=== PATIENT | female | born 1990 | race Caucasian/White ===

== ENCOUNTER 2024-01-28 13:08 | Outpatient (AMB) | payer OTHER, SELFPAY ==
--- NOTE | 2024-01-28 13:19 | MHC.OFFWIV ---
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 denies any discharge. Patient Tobacco Use Status: Never used Tobacco Allergies No Known Allergies Allergy (Verified 01/28/24 13:40) Do you need a note to return to daycare/school/sports/work: No HPI HPI Comments History of Present Illness Details here today with complaints of itchy red left eye. Started yesterday. Scant drainage to the eye upon waking. Denies any fever, chills, light sensitivity, headache, trauma to the eye. Does not wear contact lenses or glasses. PFSH Social History Patient Tobacco Use Status: Never used Tobacco Review of Systems Const All systems reviewed & are unremarkable except as noted in HPI and below Physical Exam Vital Signs: Last Vital Signs Pulse 68 01/28/24 13:20 BP 114/70 01/28/24 13:20 Pulse Ox 96 01/28/24 13:20 Oxygen Delivery Method Room Air 01/28/24 13:20 BMI result Body Mass Index 34.8 Eyes Visual Boo: normal visual boo by confrontation Alignment and Position: alignment normal Periorbital: periorbital findings normal Eyelids: Yes eyelids normal Conjunctivae: conjunctival abnormal left conjunctival injection diffuse Sclerae: sclerae normal Pupils: Equal, round and reactive pupils present EOM: EOMs intact bilaterally Direct Ophthalmoscopy: normal light reflex and no photophobia Neuro Cranial nerves: Yes Equal, round and reactive pupils present Assessment & Plan Assessment & Plan (1) Bacterial conjunctivitis of left eye: Code(s): H10.9 - Unspecified conjunctivitis Plan . Medications: New polymyxin B sulf-trimethoprim 10,000 unit- 1 mg/mL APPLY TO BOTH EYES while awake; do not exceed 6 doses in 24 hours 1 drp ophthalmic (eye) QID 5 days 10 mL 0RF Patient Instructions: Put cold or warm wet cloths on your eye a few times a day if the eye hurts. Do not wear contact lenses or eye makeup until the pink eye is gone. Throw away any eye makeup you were using when you got pink eye. Clean your contacts and storage case. Wash bed linen after 24 hours of antibiotic eye drop use. Do not share eye drops. Use a clean towel to wash your face each day until symptoms are gone. This will help prevent recurrence. What is pink eye? [place] eye is a term people use to describe an infection or irritation of the eye. The medical term for pink eye is conjunctivitis. If you have pink eye, your eye (or eyes) might: ?Turn pink or red ?Weep or ooze a gooey liquid ?Become itchy or burn ?Get stuck shut, especially when you first wake up [place] eye can be caused by an infection, allergies, or an unknown irritation. Can you catch pink eye from someone else? Yes. When pink eye is caused by an infection, it can spread easily. Usually, people catch it from touching something that has been in contact with an infected person's eye. It can also be spread when an infected person touches someone else, and then that person touches their eye. If someone you know has pink eye, avoid touching their pillowcases, towels, or other personal items. When should I see a doctor or nurse? See your doctor or nurse if your eye hurts, or if you still have trouble seeing clearly after blinking. If you do not have these problems, but think you might have pink eye, your doctor or nurse might be able to give you advice over the phone. Can pink eye be treated? Most cases of pink eye go away on their own without treatment. But some types of pink eye can be treated. When pink eye is caused by infection, it is usually caused by a virus, so antibiotics will not help. Still, pink eye caused by a virus can last several days. ?[place] eye caused by an infection with bacteria can be treated with antibiotic eye drops, gel, or ointment. ?[place] eye caused by other problems can be treated with eye drops normally used to treat allergies. These drops will not cure the pink eye, but they can help with itchiness and irritation. When using eye drops for infection, do not touch your healthy eye after touching your infected eye. Also, do not touch the bottle or dropper directly onto 1 eye and then use it in the other. These things can cause the infection to spread from 1 eye to the other. If your eyelids feel swollen, it might also help to hold a cool wet cloth on the area. What if I wear contact lenses? If you wear contact lenses and you have symptoms of pink eye, it is really important to have a doctor look at your eyes. In people who wear contacts, the symptoms of pink eye can be caused by corneal abrasion. Corneal abrasion is a scratch on the eye and can be a serious problem. During treatment for eye infections, you might need to stop wearing your contacts for a short time. If your contacts are disposable, throw them away and use new ones. If your contacts are not disposable, you need to carefully clean them. You should also throw away your contact lens case and get a new one. When can I go back to work or school? If you have pink eye caused by an infection, remember that it can spread very easily. The best way to avoid spreading it is to stay away from other people until you no longer have symptoms. If this is not possible, wash your hands often (figure 1). It's also important to avoid touching your eyes and sharing items that could spread the infection. Schools and day cares usually have rules about when a child with pink eye can return. If a child has a bacterial infection, they will probably need to stay home until they have gotten antibiotic eye drops or ointment for 24 hours. Can pink eye be prevented? To keep from getting or spreading pink eye caused by an infection: ?Wash your hands often with soap and water. ?Try not to touch your eyes. ?Avoid sharing towels, bedding, or other personal items with a person who has pink eye. If your pink eye is caused by allergies, it might help to stay inside with the windows shut as much as possible during peak allergy seasons. What problems should I watch for? Call your doctor or nurse if: ?You have trouble seeing clearly after blinking. ?Your eye is still red or has drainage after 3 days. ?You have eye pain that is getting worse. Coding Level of Care Code Est Pt Level 3 (90606) Diagnoses Bacterial conjunctivitis of left eye H10.9
[2024-01-28 13:20] VITALS: BP 114/70; PULSE 68; O2SAT 96; BMI 34.8
== END 2024-01-28 13:46 | disposition home or self-care (01) ==
PROVIDERS: Visit Provider Nurse Practitioner Family
DX: H10.9 Unspecified conjunctivitis (principal)
CPT/HCPCS: 99051; 99213

== ENCOUNTER 2024-03-19 08:33 | Outpatient (AMB) | payer OTHER, SELFPAY ==
[2024-03-19 09:18] VITALS: BP 132/80; PULSE 82; TEMP 36.8; O2SAT 98; BMI 35.8
--- NOTE | 2024-03-19 09:18 | MHC.OFFWIV ---
Intake Vital Signs 03/19/24 09:18 Height 5 ft 5 in Weight 215 lb BMI 35.8 BP 132/80 Blood Pressure Location Rt brachial Position Sitting Pulse 82 Pulse Source Pulse Oximeter Temp 98.2 F Temp Source Oral Pulse Oximetry (%) 98 Oxygen Delivery Method Room Air Intake Visit Reasons: EP ?Strep Intake Note: pt is here for possible strep Patient Tobacco Use Status: Never used Tobacco Allergies No Known Allergies Allergy (Verified 03/19/24 09:23) Do you need a note to return to daycare/school/sports/work: Yes HPI HPI Comments History of Present Illness Details Patient is a 33-year-old female complaining of 3 days of worsening sore throat, headache and pain with swallowing. She feels like her tonsils are swollen and she noticed white spots in the back of her throat this morning. She states she also feels like she has ear fullness in both ears. She states she does have a young child and she has been on vacation and taking him to do all kinds of activities at [facility] places for the last week so she has had many sick contact possibilities. She denies any fevers or cough. She states her son is not sick yet. [facility] Social History Patient Tobacco Use Status: Never used Tobacco Review of Systems Const All systems reviewed & are unremarkable except as noted in HPI and below Physical Exam Vital Signs: Last Vital Signs Temp 98.2 F 03/19/24 09:18 Pulse 82 03/19/24 09:18 BP 132/80 03/19/24 09:18 Pulse Ox 98 03/19/24 09:18 Oxygen Delivery Method Room Air 03/19/24 09:18 BMI result Body Mass Index 35.8 Const General: cooperative, healthy appearing, comfortable and no acute distress Orientation/consciousness: patient oriented x3 Limitations: no limitations HEENT Head: Yes normal to inspection Ears: hearing grossly normal bilaterally, external ears normal and TM's normal bilaterally General nose exam: Normal external nose present, Normal nares present and No nasal discharge present Face and sinus: Yes normal facial exam and Yes sinuses nontender Mouth: Normal oral and palatal mucosa present and moist mucous membranes Throat: Yes tonsils normal, Yes uvula midline and Yes posterior oropharynx abnormal (Erythema and exudates) Eyes General: appearance normal, both eyes and all related structures Neck Neck: Yes normal visual inspection Resp Effort & Inspection: normal respiratory effort, able to speak in complete sentences, no respiratory distress, not tachypneic, no tripod positioning and no use of accessory muscles Skin General skin exam: no rashes or lesions noted Neuro General: patient oriented x3 Extrem General: Yes normal to inspection and Yes no clubbing, cyanosis or edema Results AMB Rapid Strep AMB Rapid Strep Negative Last Edit by Jv Jauregui CMA on 03/19/24 09:40 Assessment & Plan Assessment & Plan (1) Strep pharyngitis: Code(s): J02.0 - Streptococcal pharyngitis Plan: Center score is 3, we will treat for strep pharyngitis despite rapid strep being negaative. Plan see above Orders: Orders AMB Rapid Strep Screen Today Z13.9 - Encounter for screening, unspecified Medications: New amoxicillin 500 mg PO BID 20 tabs 0RF Coding Level of Care Code New Pt Level 3 (06651) Diagnoses Strep pharyngitis J02.0
== END 2024-03-19 10:15 | disposition home or self-care (01) ==
PROVIDERS: Visit Provider Physician Assistant
DX: Z13.9 Encounter for screening, unspecified (principal); J02.0 Streptococcal pharyngitis
CPT/HCPCS: 87880; 99203